=== PATIENT | female | born 1965 | race Caucasian/White ===

== ENCOUNTER 2019-09-10 09:46 | Day surgery (SDC) | payer OTHER ==
[~2019-09-10 09:46] MED LIST: ACETAMINOPHEN 1,000 MG/100 ML BTL IVPB ONE; CEFAZOLIN 2 Gram 2 GM/50 ML BAG IVPB ONE
[2019-09-10] MEDS ORDERED: PROPOFOL 10 MG/ML VIAL IV ONE (09:47)
[2019-09-10] MEDS ORDERED: GLYCOPYRROLATE 0.2 MG/ML ML IV ONE (09:47)
[2019-09-10] MEDS ORDERED: DESFLURANE 240 ML BTL INH ONE (09:47)
[2019-09-10] MEDS ORDERED: ONDANSETRON HCL IV 4 MG/2 ML VIAL IVP ONE (09:47)
[2019-09-10] MEDS ORDERED: DEXAMETHASONE 4 MG/ML 1ML VIAL IVP ONE (09:47)
[2019-09-10] MEDS ORDERED: MIDAZOLAM HCL 2MG/2ML VIAL IV ONE (09:47)
[2019-09-10] MEDS ORDERED: LIDOCAINE 2% MDV (20MG/ML) 20ML VIAL IV ONE (09:47)
[2019-09-10] MEDS ORDERED: KETOROLAC 30 MG/ML VIAL IVP ONE (09:47)
[2019-09-10] MEDS ORDERED: FENTANYL PF 100MCG/2ML VIAL IV ONE (09:47)
[2019-09-10] MEDS ORDERED: RINGERS SOLUTION,LACTATED 1,000 ML IV ONE ×2 (10:50→13:55)
[2019-09-10] MEDS ORDERED: BUPIVACAINE 0.5% W/EPI MPF 30 ML VIAL SQ ONE (13:50)
[2019-09-10] MEDS ORDERED: HYDROCODONE/APAP 7.5/325MG TABLET PO ONE (15:39)
--- NOTE | 2019-09-11 11:00 | Operative Note ---
DATE OF SURGERY: 09/10/2019 PREOPERATIVE DIAGNOSIS: Recurrent lateral dislocation subluxation right patella. POSTOPERATIVE DIAGNOSES: 1. Recurrent lateral dislocation subluxation right patella. 2. Grade 3 chondromalacia of patella. 3. Small degenerative tear involving the anteromedial horn of the medial meniscus. OPERATION: 1. Right knee tibial tubercle osteotomy. 2. Right knee arthroscopy with intraarticular debridement and partial medial meniscectomy. 3. Right knee lateral release. 4. Interpretation of x-rays during the procedure. STAFF SURGEON: Mat Madsen MD ANESTHESIA: General. PREPARATION: Chloraprep. INDIVIDUAL CONSIDERATIONS: None. PROCEDURE: The patient was taken to the operating room, placed supine on the operating room table. She had a successful induction of a general anesthetic. The right lower extremity was prepped and draped in the usual fashion. Examination under anesthesia showed I could just about dislocate the patella laterally by pushing on it. The patient had a superolateral inflow cannula placed. Skin was infiltrated with 0.5% Marcaine with epinephrine prior. The knee was then inflated with normal saline. An inferomedial and an inferolateral portal were made in a similar fashion. The arthroscope was introduced through the inferolateral portal up into the pouch. Patellofemoral joint showed grade 3 changes along the medial facet and it basically would fit into the lateral femoral condyle when I dislocated laterally and subluxed laterally. The notch looked good. The grade 3 changes were smoothed with a shaver. In the medial compartment, there was a small fringe tear involving the anteromedial horn of the medial meniscus which was debrided with a shaver to a stable rim. The remainder of the articular cartilage was normal. In the notch, the cruciates were normal and lateral compartment structures were normal. The knee was irrigated out with saline, and the arthroscope instruments were removed. The patient had a midline approach to the patella tendon and tibial tubercle. An incision was made just distal to the inferior pole of the patella along the midline, along the anterior crest of the tibia beyond the tibial tubercle. Total length was about 8 cm. Skin was again infiltrated with 0.5% Marcaine with epinephrine prior. Sharp dissection carried down through skin and subcutaneous tissues. Small veins were coagulated with a Bovie. An incision was made along the lateral border of the proximal tibia right where the muscles of the anterior compartment came in. This was then opened and the muscles were taken off about 1 cm deep subperiosteally. I then extended this incision to the lateral retinaculum next to the patellar tendon. I made a stab wound and then with scissors did a lateral release up to about the superolateral portal. I then made a broad-based osteotomy on the tibial tubercle extending I would say about 6-8 cm. I then cut the medial periosteal hinge and then angled it medially on a hinge distally. I also brought it down about 2 mm to compensate for the cosign of the angle. I moved it over I would say mid patellar tendon about 1 cm. It was provisionally fixed with the guide pins for the 6.5 cannulated screws. I put the knee through a full range of motion. It was obvious improved tracking and balance. I then secured it in a lag fashion with cannulated screws and washers as verified by fluoroscopy. The tourniquet was let down and hemostasis was obtained with a Bovie. After irrigation, the periosteum distal 2/3 was closed with running #1 Vicryl, subcu was closed with 2-0 plus Vicryl, skin was closed on the anterior wound with running 3-0 quill. Arthroscopy portals were closed with faith. About 15 mL of 0.5% Marcaine with epinephrine along with 4 mg of morphine were injected into the knee through a sterile needle. A sterile bulky compressive dressing was applied. The patient tolerated procedure well. Needle and sponge counts were correct. Estimated blood loss was minimal. She was taken back to recovery in good condition. There were no complications. TENA
== END 2019-09-10 16:00 | disposition home or self-care (01) ==
LOC: SUR 09:46
PROVIDERS: ATTEND Orthopaedic Surgery
DX: S83.241A Other tear of medial meniscus, current injury, right knee, initial encounter (principal); M22.41 Chondromalacia patellae, right knee; I10 Essential (primary) hypertension; M19.90 Unspecified osteoarthritis, unspecified site; M41.9 Scoliosis, unspecified; M51.36 Other intervertebral disc degeneration, lumbar region; Z85.42 Personal history of malignant neoplasm of other parts of uterus; Z85.3 Personal history of malignant neoplasm of breast
CPT/HCPCS: 29881; 27705; 27425; 01400; C1713; J1885; J2405; J3010; J0690; J7120